=== PATIENT | male | born 1965 | race Caucasian/White ===

== ENCOUNTER 2018-10-22 14:55 | Emergency (ER) | payer OTHER ==
[~2018-10-22] VITALS: Ht 172.7 cm; Wt 77.3 kg
[~2018-10-22 14:55] MED LIST: ALBU8.5H8 IH; ARIP10TA8 PO; ETAN25I SQ; FLUT16H NASAL; FLUT1DIS5 IH; MONT10TA21 PO; OMEP20 PO; PRED5 PO; TRAZ-220 PO; ZOLP5 PO
[2018-10-22] MEDS ORDERED: ALBUTEROL SULFATE 2.5 MG/0.5 ML NEB SOLUTION NEB ONE (18:45)
[2018-10-22] MEDS ORDERED: ALBUTEROL SULFATE HFA 90 MCG/PUFF 8 GM INHALER IH ONE (18:45)
[2018-10-22 20:10] VITALS: BP 123/76
[2018-10-22] MEDS ORDERED: ACETAMINOPHEN 500 MG TABLET PO ONE (20:30)
== END 2018-10-22 20:30 | disposition home or self-care (01) ==
LOC: EMS 14:56
DX: R06.02 Shortness of breath (principal); R03.0 Elevated blood-pressure reading, without diagnosis of hypertension; F32.9 Major depressive disorder, single episode, unspecified; Z59.0 Homelessness; Z88.0 Allergy status to penicillin
CPT/HCPCS: 94640; J3535

== ENCOUNTER 2018-11-12 15:09 | Emergency (ER) | payer OTHER ==
[~2018-11-12] VITALS: Ht 172.7 cm; Wt 77.3 kg
[2018-11-12] MEDS ORDERED: LIDOCAINE 1% 10 ML VIAL INJ ONE (15:45)
[2018-11-12 16:27] VITALS: BP 145/98
[2018-11-12] MEDS ORDERED: CLINDAMYCIN HCL 150 MG CAPSULE PO ONE (16:30)
== END 2018-11-12 16:49 | disposition home or self-care (01) ==
LOC: EMS 15:11
DX: L02.01 Cutaneous abscess of face (principal); F32.9 Major depressive disorder, single episode, unspecified; Z88.0 Allergy status to penicillin; Z79.899 Other long term (current) drug therapy
CPT/HCPCS: 10060; 99283; J3490

== ENCOUNTER 2018-11-27 14:25 | Emergency (ER) | payer OTHER ==
[~2018-11-27] VITALS: Ht 172.7 cm; Wt 75.9 kg
[2018-11-27 14:40] VITALS: BP 153/66
[2018-11-27] MEDS ORDERED: SUMA100T PO (14:52)
[2018-11-27] MEDS ORDERED: PANT40TA25 PO (14:52)
[2018-11-27] MEDS ORDERED: CETI10TA59 PO (14:52)
[2018-11-27] MEDS ORDERED: DIVA-78 PO (14:52)
[2018-11-27] MEDS ORDERED: IXEK80SY3 IM (14:52)
[2018-11-27] MEDS ORDERED: TAMS-1 PO (14:52)
[2018-11-27] MEDS ORDERED: CLIN150C9 PO (14:52)
[2018-11-27] MEDS ORDERED: ONDA4 PO (14:52)
[2018-11-27] MEDS ORDERED: KETOROLAC TROMETHAMINE 30 MG/ML VIAL IM ONE (15:45)
== END 2018-11-27 16:30 | disposition home or self-care (01) ==
LOC: EMS 14:27
DX: S16.1XXA Strain of muscle, fascia and tendon at neck level, initial encounter (principal); F32.9 Major depressive disorder, single episode, unspecified; G43.909 Migraine, unspecified, not intractable, without status migrainosus; Z88.0 Allergy status to penicillin; X58.XXXA Exposure to other specified factors, initial encounter; Y93.89 Activity, other specified; Y92.89 Other specified places as the place of occurrence of the external cause; Y99.8 Other external cause status
CPT/HCPCS: 96372; 99283; J1885

== ENCOUNTER 2025-02-15 15:38 | Inpatient (IN) | payer OTHER ==
[~2025-02-15] VITALS: Ht 175.3 cm; Wt 83.0 kg
[~2025-02-15 15:38] MED LIST changes: -ARIP10TA8 PO; +CETI10TA77 PO; +CLIN-26 PO; +DIVA-112 PO; -ETAN25I SQ; -FLUT16H NASAL; -FLUT1DIS5 IH; +IXEK80SY3 IM; +MONT-35 PO; -MONT10TA21 PO; -OMEP20 PO; +ONDA-104 PO; +PANT-31 PO; -PRED5 PO; +SUMA100T21 PO; +TAMS-55 PO; -TRAZ-220 PO; +TRAZ-257 PO; -ZOLP5 PO
[2025-02-15] MEDS: SODIUM CHLORIDE 0.9% 1,000 ML IV ONE (16:24)
[2025-02-15 16:37] LABS: PLATELET COUNT (AUTO) 196 K/uL (150-450); RED BLOOD CELL COUNT(AUTO) 4.97 MIL/uL (4.50-5.90); RED CELL DISTRIBUTION WIDTH 16.9 % (11.5-14.5); WHITE BLOOD COUNT (AUTO) 6.9 K/uL (4.5-11.0)
[2025-02-15 16:45] LABS: CALCIUM, TOTAL 9.0 mg/dL (8.8-10.5); CREATININE 1.19 mg/dL (0.60-1.30); GLOMERULAR FILTR. RATE CALC > 60 mL/min (>60); GLUCOSE,RANDOM 114 mg/dL (70-110); SODIUM SERUM 140 mmol/L (136-145); UREA NITROGEN, BLOOD 11 mg/dL (7-18)
[2025-02-15] MEDS: LevETIRAcetam 1,000 MG in DEXTROSE 5%-WATER 100 ML IV ONE (16:45)
[2025-02-15 16:51] LABS: ALCOHOL, BLOOD (SERUM) < 3 mg/dL (0-10); ASPARTATE AMINOTRANSFERASE 30 U/L (15-37); TOTAL PROTEIN, SERUM 7.6 g/dL (6.4-8.2)
[2025-02-15 16:57] LABS: TROPONIN I-HIGH SENSITIVITY 4 ng/L (<76)
[2025-02-15] MEDS: ACETAMINOPHEN 500 MG TABLET PO ONE (17:46)
[2025-02-15 19:58] LABS: APPEARANCE,URINE CLEAR (CLEAR); GLUCOSE, URINE (UA) NEGATIVE (NEGATIVE); LEUKOCYTE ESTERASE ,URINE NEGATIVE (NEGATIVE); NITRATE,URINE NEGATIVE (NEGATIVE); OCCULT BLOOD,URINE NEGATIVE (NEGATIVE); PH,URINE DRUG SCREEN 5.0 (5.0-8.0); SPECIFIC GRAVITIY, URINE 1.012 (1.003-1.030)
[2025-02-15 20:15] LABS: ALCOHOL, URINE DRUG SCREEN NEGATIVE (NEGATIVE); AMPHET/METH SCREEN,URINE NEGATIVE (NEGATIVE); BARBITURATE SCREEN, URINE NEGATIVE (NEGATIVE); CANNABINOID SCREEN,URINE POSITIVE (NEGATIVE); COCAINE SCREEN,URINE NEGATIVE (NEGATIVE); METHADONE SCREEN, URINE NEGATIVE (NEGATIVE)
[2025-02-15 21:00] VITALS: BP 128/96; PULSE 81; RESP 18; TEMP 98.4; O2SAT 100
[2025-02-15] MEDS ORDERED: ROPI1TAB46 PO (21:44)
[2025-02-15] MEDS ORDERED: CYCL-397 PO (21:45)
[2025-02-15] MEDS ORDERED: FERR-82 PO (21:46)
[2025-02-15] MEDS ORDERED: LINA72CA PO (21:47)
[2025-02-15] MEDS ORDERED: ATOG30TA PO (21:48)
[2025-02-15] MEDS ORDERED: CETI-193 PO (21:49)
[2025-02-15] MEDS ORDERED: TAMS0.4C94 PO (21:52)
[2025-02-15] MEDS ORDERED: SUMA25TA15 PO (21:52)
[2025-02-15] MEDS ORDERED: FINA-27 PO (21:52)
[2025-02-15] MEDS: CYCLOBENZAPRINE HCL 10 MG TABLET PO ONE (23:24)
[2025-02-16] VITALS: BP 114/71; PULSE 77; RESP 18; TEMP 98.4; O2SAT 99
[2025-02-16] MEDS: ONDANSETRON HCL 4 MG/2 ML VIAL IVP PRN (00:12)
[2025-02-16] MEDS ORDERED: HYDROCODONE/ACETAMINOPHEN 5-325 MG TABLET PO PRN (01:30)
[2025-02-16] MEDS ORDERED: MAGNESIUM HYDROXIDE SUSPENSION 30 ML UDCUP PO PRN (01:30)
[2025-02-16] MEDS ORDERED: ALBUTEROL SULFATE 2.5 MG/0.5 ML NEB SOLUTION NEB PRN (01:30)
[2025-02-16] MEDS ORDERED: MORPHINE SULFATE 4 MG/ML SYRINGE IVP PRN (01:30)
[2025-02-16] MEDS ORDERED: BISACODYL 10 MG RECTAL RECTAL SUPPOSITORY PR PRN (01:30)
[2025-02-16] MEDS ORDERED: ONDANSETRON HCL 4 MG/2 ML VIAL IVP PRN (01:30)
[2025-02-16] MEDS ORDERED: ZOLPIDEM TARTRATE 5 MG TABLET PO PRN (01:30)
[2025-02-16] MEDS ORDERED: ACETAMINOPHEN 325 MG TABLET PO PRN (01:30)
[2025-02-16] MEDS ORDERED: IPRATROPIUM BROMIDE 0.5 MG/2.5 ML NEB SOLUTION NEB PRN (01:30)
[2025-02-16 04:00] VITALS: BP 126/81; PULSE 79; RESP 18; TEMP 97.9; O2SAT 98
[2025-02-16 06:17] LABS: PLATELET COUNT (AUTO) 187 K/uL (150-450); RED BLOOD CELL COUNT(AUTO) 4.52 MIL/uL (4.50-5.90); RED CELL DISTRIBUTION WIDTH 16.6 % (11.5-14.5); WHITE BLOOD COUNT (AUTO) 8.4 K/uL (4.5-11.0)
[2025-02-16 06:22] LABS: CALCIUM, TOTAL 8.0 mg/dL (8.8-10.5); CREATININE 0.96 mg/dL (0.60-1.30); GLOMERULAR FILTR. RATE CALC > 60 mL/min (>60); GLUCOSE,RANDOM 100 mg/dL (70-110); SODIUM SERUM 142 mmol/L (136-145); UREA NITROGEN, BLOOD 10 mg/dL (7-18)
[2025-02-16] MEDS: CETIRIZINE HCL 10 MG TABLET PO SCH (08:07)
[2025-02-16] MEDS: PANTOPRAZOLE SODIUM 40 MG DR TABLET PO SCH ×2 (08:07→08:12)
[2025-02-16] MEDS: LINACLOTIDE 72 MCG CAPSULE PO SCH (08:07)
[2025-02-16] MEDS: FERROUS SULFATE 325 MG EC TABLET PO SCH (08:07)
[2025-02-16] MEDS: FINASTERIDE 5 MG TABLET PO SCH (08:07)
[2025-02-16] MEDS: HEPARIN SODIUM,PORCINE 5,000 UNITS/ML VIAL SQ SCH (08:08)
[2025-02-16 09:01] VITALS: BP 115/75; PULSE 75; RESP 18; TEMP 97.9; O2SAT 97
[2025-02-16] MEDS ORDERED: LEVE-71 PO (11:43)
[2025-02-16 12:23] VITALS: BP 133/96; PULSE 80; RESP 18; TEMP 97.9; O2SAT 100
[2025-02-16] MEDS ORDERED: CYCLOBENZAPRINE HCL 10 MG TABLET PO SCH (21:00)
[2025-02-16] MEDS ORDERED: TAMSULOSIN HCL 0.4 MG CAPSULE PO SCH (21:00)
== END 2025-02-16 13:15 | disposition left against medical advice (07) | DRG 53 ==
LOC: EMS 15:38 → EDH 17:13 → 5N 21:06
PROVIDERS: ADMIT Hospitalist; ATTEND Hospitalist
DX: G40.909 Epilepsy, unspecified, not intractable, without status epilepticus (principal); G90.89 Other disorders of autonomic nervous system; F32.A Depression, unspecified; G25.81 Restless legs syndrome; Z53.29 Procedure and treatment not carried out because of patient's decision for other reasons; M47.812 Spondylosis without myelopathy or radiculopathy, cervical region; M48.02 Spinal stenosis, cervical region; Z88.0 Allergy status to penicillin; Z79.899 Other long term (current) drug therapy
CPT/HCPCS: 70450; 70486; 71045; 72125; 80048; 80076; 80307; 81003; 83880; 84484; 85025; 93005; 93306; 99285; G0480; J0712; J1644; J2405; J7060; 36415-L1; 36415-TC